=== PATIENT | female | born 1950 | race Caucasian/White ===

== ENCOUNTER → 2018-09-05 | Outpatient (CLI) | payer OTHER, MEDICAID ==
--- NOTE | 2018-09-08 13:15 | CPEEG ---
[f rep st] ELECTROENCEPHALOGRAM DATE OF STUDY: 09/05/2018 DATE OF INTERPRETATION: 09/08/2018 INTERPRETATION: Normal EEG during wakefulness and drowsiness. There were no potentially epileptogenic abnormalities present during the recording. REPORT: This EEG contains sparse, low amplitude 10 Hz alpha activity to the posterior head regions. The background activity was normal and symmetric. There was no abnormal activation at rest, during photic stimulation or hyperventilation. The patient became drowsy during the study. There was no abnormal activation during drowsiness or during times of arousal. /[id number]/MODL MTDD
== END ==
LOC: FCPNEURO 11:01
PROVIDERS: ATTEND Psychiatry & Neurology Neurology
DX: R25.9 Unspecified abnormal involuntary movements (principal)